=== PATIENT | female | born 1965 | race Caucasian/White ===

== ENCOUNTER → 2016-11-21 | Outpatient (CLI) | payer OTHER ==
--- NOTE | 2016-11-21 14:23 | DIAGNOSTIC IMAGING REPORT ---
LYMPHOSCINTIGRAPHY CLINICAL HISTORY: Right breast cancer. PROCEDURE: Using standard sterile technique, 4 intradermal and one deep injection of 0.5 mCi of Lymphoseek was placed in the right breast. The patient tolerated the procedure well. There were no immediate complications. The patient was subsequently transported to the surgical suite. No imaging was obtained at the referring physician's request. IMPRESSION: Injection of 0.5 mCi of Lymphoseek in the right breast. Electronically signed by: Clemente Day M.D. 11/21/2016 2:22 PM Dictated Date/Time: 11/21/2016 2:20 PM
== END | disposition home or self-care (01) ==
LOC: C.NUCL 13:20
PROVIDERS: ATTEND Surgery
DX: C50.911 Malignant neoplasm of unspecified site of right female breast (principal)

== ENCOUNTER → 2016-12-18 | Outpatient (CLI) | payer OTHER ==
--- NOTE | 2016-12-18 10:16 | DIAGNOSTIC IMAGING REPORT ---
PET/CT SKULL-THIGH CLINICAL HISTORY: 51 years-old Female presenting with BREAST CANCER, history of partial mastectomy November 2016, and initially diagnosed with breast cancer October 2016, history of IDC NOS, pT2N2a. TECHNIQUE: PET/CT was performed from the base of the skull through the proximal thighs following the intravenous administration of 13.821 mCi of F18-FDG. Blood glucose level 72 mg/dL. The injection was performed at 7:10 AM and imaging began at 7:[address] was performed for attenuation correction purposes and anatomic localization. COMPARISON: None. CT DOSE (mGy.cm): The estimated cumulative dose is 1156.30. FINDINGS: Head and neck: No FDG-avid disease or significant lymphadenopathy in the imaged portions of the head and the neck. Chest: Photopenic low-density collection in the lateral right breast measuring 3.5 cm, consistent with seroma. Subcentimeter mildly FDG avid right axillary lymph nodes (max SUV 3.1 and 2.5). Relatively photopenic masslike asymmetry in the posterior superior left breast. No convincing evidence of an FDG avid residual breast mass. Normal thyroid and thoracic inlet. Normal heart size. No pericardial or pleural effusion. No focal infiltrate or pulmonary nodule. No FDG avidity in the lungs. Abdomen and pelvis: Below the diaphragm, physiologic distribution of radiotracer in the gastrointestinal and genitourinary tracts. Cholecystectomy clips noted. Multiple parapelvic cysts noted in the kidneys bilaterally. No bowel obstruction. No pathologically enlarged or FDG avid lymph nodes in the abdomen or pelvis. Musculoskeletal: No FDG-avid or destructive bone lesion. IMPRESSION: 1. Postsurgical changes of the right breast with seroma. Mildly FDG avid right axillary lymph nodes, which are nonpathologic enlarged though suspicious for lymph node metastases. No other sites of metastatic disease identified in the body. 2. Relatively photopenic masslike asymmetry in the posterior superior left breast. Correlate with mammography. Electronically signed by: Ye Fuentes M.D. 12/18/2016 10:15 AM Dictated Date/Time: 12/18/2016 9:49 AM
== END | disposition home or self-care (01) ==
LOC: C.PET 06:51
PROVIDERS: ATTEND Surgery
DX: C50.411 Malignant neoplasm of upper-outer quadrant of right female breast (principal)

== ENCOUNTER → 2017-10-01 | Outpatient (CLI) | payer OTHER ==
[~2017-10-01] MED LIST: ACET-1693 PO; BIOT1CAP3 PO; CALC-343 PO; DEXL60CA4 PO; GLUCTAB7 PO; MONT1TAB5 PO; MULT-506 PO; SPIR50TA2 PO
[2017-10-01 15:17] VITALS: BP 114/77; PULSE 80; TEMP 36.8; O2SAT 98
--- NOTE | 2017-10-01 16:19 | Radiation Oncology Follow-Up ---
Radiation Oncology Follow-Up Date of Visit Oct 01, 2017. Reason For Visit One-month follow-up and cancer survivorship care plan Radiation Completion Date 08/15/17 Diagnosis (1) Malignant neoplasm of upper-outer quadrant of right breast in female, estrogen receptor negative Status: Acute Onset Date: 11/07/2016 Histology Subtype: Ductal Stage: lll (C) Permanent Comment: Self detected right breast mass Status post ultrasound-guided core needle biopsy November 07, 2016 Invasive ductal carcinoma grade 3 Estrogen receptor negative, progesterone receptor negative, and HER-2/juan c negative Status post right partial mastectomy and sentinel lymph node biopsy and left breast biopsy November 25, 2016 Left breast biopsy benign Right breast Stage pT2 pN2a M0 Status post completion of systemic chemotherapy May 23, 2017, Dose Dense Adriamycin and Cytoxan followed by weekly Taxol. Status post completion of radiation therapy to the right breast, supraclavicular area, and axilla. Treatment was completed August 15, 2017. She received 6640 cGy. Last Edited By: Isa Sarabia on Aug 26, 2017 16:19 History of Present Illness Ms. Melgar has a family history of breast cancer. The patient's paternal aunt and maternal grandmother were diagnosed with breast cancer. The patient was followed with screening mammograms. 11/04/2016. Patient undergoes bilateral screening mammogram. On examination patient was found to have a palpable right breast mass initially identified on ultrasound. 11/07/2016. Patient undergoes ultrasound-guided core biopsy of the right breast mass at [facility]. This revealed an infiltrative ductal carcinoma. The overall Shireen histologic grade was 3. No DCIS was noted. No lymphovascular space invasion was seen and no necrosis was appreciated. Specimen: [id number]. This lesion is estrogen receptor negative and progesterone receptor negative. HER-2 was equivocal by immunohistochemistry. These cells were ultimately evaluated by FISH analysis which also was equivocal. A second FISH panel was ultimately performed and this result was reported as negative for gene amplification. Case : [id number]. 11/22/2016. Patient is seen by Dr. Omar Balbuena who recommended breast conserving therapy. The patient agreed and this was performed on this date. He performed a right partial mastectomy with sentinel lymph node biopsy. An asymmetry of the left breast was biopsied revealing benign breast tissue with no evidence of in situ or invasive carcinoma. The right breast partial mastectomy was performed. This revealed an infiltrating ductal carcinoma Shireen grade 3. The tumor measured 2.5 x 2.0 x 2.0 cm. There was no DCIS and no lymphovascular space or perineural invasion identified. The margins were negative with the closest margin at 0.2 cm represented by the superior margin. A total of 9 sentinel and non-sentinel lymph nodes were identified with 5 of the 9 lymph nodes positive. There was no extranodal extension identified in the largest metastatic deposit was 1.5 cm. The final AJCC PATHOLOGIC STAGING (pTNM): pT2N2a. Case: [id number]. FINAL DIAGNOSIS A. BREAST, LEFT, NEEDLE LOCALIZATION BIOPSY: 1. BENIGN BREAST TISSUE. SEE COMMENT. 2. NEGATIVE FOR IN SITU AND INVASIVE CARCINOMA. B. LYMPH NODE #2, RIGHT AXILLA, EXCISION: BENIGN LYMPH NODE WITH NO EVIDENCE OF METASTATIC CARCINOMA ON ROUTINE STAINS OR BY IMMUNOHISTOCHEMISTRY TO CYTOKERATIN (0/1). SEE COMMENT. C. LYMPH NODE #3, RIGHT AXILLA, EXCISION: METASTATIC ADENOCARCINOMA (1/1). D. LYMPH NODES, SENTINEL AND NON-SENTINEL, RIGHT AXILLA, EXCISION: METASTATIC ADENOCARCINOMA PRESENT IN FOUR OF SEVEN LYMPH NODES (4/7). SEE COMMENT. E. BREAST, RIGHT, PARTIAL MASTECTOMY: 1. INFILTRATING DUCTAL CARCINOMA, GRADE 3/3. 2. EXAMINED MARGINS FREE OF NEOPLASM. 3. SEE SYNOPTIC REPORT. 12/18/2016. PET CT scan revealed a postoperative seroma at the surgical site. There was subcentimeter mildly FDG avid right axillary lymph nodes. The maximum SUV was 3.1 and 2.5. There was no FDG avid evidence of metastatic disease. 01/03/2017. Patient had been seen by Dr. Jarod Timmons who recommended systemic chemotherapy for this triple negative right breast carcinoma. She started dose dense Adriamycin and Cytoxan on this date and completed on February 21, 2017. 02/21/2017. She then received weekly Taxol and completed her systemic therapy on May 23, 2017. Patient also completed BRCA 1 and 2 testing and was negative. 05/27/2017. Patient is seen in our department to discuss the role of adjuvant radiation. 08/15/2017---status post completion of radiation therapy to the right breast, supraclavicular area, and axilla. She received 6640 cGy utilizing conventional radiation therapy. Interim History She has had steady improvement of the skin and irritation. She had desquamation at the end of treatment. She has been prescribed Silvadene. This healed without difficulty. She does continue to have a dark discoloration to the skin. She denies any pain or tenderness. She is noted no masses and no change of the axilla. She has had no swelling of her arm. She has been seen by the breast surgeon and had a mammogram at [facility]. She is scheduled for bilateral mammography in November. She is also been seen by the milk house worker. He is planning a hysteroscopy and endometrial biopsy tomorrow. She does have some lingering fatigue since the end of treatment. Allergies Coded Allergies: No Known Allergies (Unverified , 05/27/17) Home Medications Scheduled Biotin (Biotin), 1 CAP PO DAILY Calcium Carbonate-Cholecalcife (Calcium 500 +D), 1 TAB PO DAILY Dexlansoprazole (Dexilant), 1 CAP PO DAILY Ehtykpkwuer-Axghvrbsdjn-Tdh C- (Glucosamine Chondroitin), 1 TAB PO DAILY Montelukast Sodium (Montelukast Sodium), 1 TAB PO DAILY Multivitamin (Multivitamin), 1 TAB PO DAILY Spironolactone (Aldactone), 50 MG PO BID Scheduled PRN Acetaminophen Tab (Tylenol), 650 MG PO Q6H PRN for Pain Review of Systems Gastrointestinal: Symptoms: Constipation GI Comments: Constipation since having chemo - manageable at home Oral: Symptoms: No Problems Respiratory: Symptoms: WNL Urinary: Symptoms: WNL Skin: Symptoms: No Problems Breast: Right Upper Arm Measurement: 31.3 Right Mid Arm Measurement: 24.3 Right Wrist Measurement: 15.3 Left Upper Arm Measurement: 30.8 Left Mid Arm Measurement: 24.3 Left Wrist Measurement: 15.3 Arm Dominence: Right Additional Notes: She completed a distress management report and answer "no" to all questions other than she has concerns about her medical treatment choices. Physical Exam Vital Signs Date Time Temp Pulse Resp B/P (MAP) Pulse Ox O2 Delivery O2 Flow Rate FiO2 10/01/17 15:17 36.8 80 12 114/77 98 ECOG Performance Status: 0 General Appearance: no apparent distress Eyes: normal inspection, EOMI ENT: normal ENT inspection, hearing grossly normal Neck: no adenopathy, thyroid normal Respiratory/Chest: lungs clear, no respiratory distress, no accessory muscle use Breast: Breast examination reveals resolving hyperpigmentation of the right breast. There are no masses or tenderness and no axillary adenopathy. She has no breast edema. There are no skin retractions or nipple changes. There are no fibrous changes. Using the Ludlow score of cosmesis she has an excellent outcome. The left breast showed no masses or tenderness and no axillary adenopathy. Cardiovascular: regular rate, rhythm, no gallop, no murmur Skin: warm/dry Lymphatic: no adenopathy Pain Management Patient Reports Pain: No Initial Pain Intensity: 0.0 Pain Management Plan She denies pain therefore requires no pain management. Laboratory Laboratory Results: not applicable Pathology Pathology Results: and pertinent findings noted in HPI Imaging Imaging Studies: were reviewed, not applicable Imaging Comments She did have a mammogram and a copy of the report will be obtained for our chart. Assessment & Plan Plan: Continue regular follow-up with her primary care provider, breast surgeon , and medical oncologist. She is scheduled for bilateral mammography in November. Today we completed a cancer survivorship care plan. A copy of the document was given to the patient. She was given a survivorship booklet. We reviewed late side effects of treatment. We asked her to return to our office in 6 months. She may call if she has any questions or concerns in the interim. Total Time In Follow-Up I spent 20 minutes speaking to the patient in performing examination. I spent 20 minutes reviewing information, preparing the survivorship document, and completing this note. Copy To Roseline Ford M.D.; Jarod Timmons MD; HOSEA GUTHRIE M.D.
== END | disposition home or self-care (01) ==
LOC: C.ONC 15:00
PROVIDERS: ATTEND Physician Assistant Medical
DX: Z08 Encounter for follow-up examination after completed treatment for malignant neoplasm (principal); Z92.3 Personal history of irradiation; Z85.3 Personal history of malignant neoplasm of breast